=== PATIENT | male | born 1950 | race Caucasian/White ===

== ENCOUNTER 2022-10-17 11:50 | Emergency (ER) | payer SELFPAY ==
[2022-10-17 12:03] VITALS: BP 141/65; PULSE 63; RESP 19; TEMP 97.6; BMI 21.2
[2022-10-17] MEDS ORDERED: LIDOCAINE 5% TOPICAL PATCH TP ONE (13:06)
[2022-10-17] MEDS ORDERED: LIDOCAINE 5% TOPICAL PATCH ONE (13:07)
[2022-10-17] MEDS ORDERED: LIDOCAINE PATCH REMOVAL MC ONE (22:00)
== END 2022-10-17 14:16 | disposition home or self-care (01) ==
LOC: JERFT 11:50
DX: S22.31XA Fracture of one rib, right side, initial encounter for closed fracture (principal); W10.9XXA Fall (on) (from) unspecified stairs and steps, initial encounter
CPT/HCPCS: 71046-TC-FY; 71101-TC-RT-FY; 99284-25